=== PATIENT | female | born 1950 | race Hispanic/Latino ===

== ENCOUNTER 2016-12-15 09:38 | Emergency (ER) | payer BC ==
[2016-12-15 09:46] VITALS: PULSE 72; RESP 18; TEMP 98; BMI 18.3
--- NOTE | 2016-12-15 12:43 | ED PDOC ---
HPI: Trauma/Fall - HPI Time Seen by Provider: 12/15/16 10:11 Chief Complaint (Nursing): Groin Pain Chief Complaint (Provider): Groin Pain History Per: Patient History/Exam Limitations: no limitations Onset/Duration Of Symptoms: Days (2) Injury Occurred (Timing): Days Ago: (2) Location Of Injury: Right: Hip Severity: Moderate Additional Complaint(s): Patient is a 66 year old female who presents to ED for evaluation of right groin pain since falling. Patient states she was walking a dog, tripped and fell onto right side, since the fall has had ongoing pain. Denies head, neck or back injury. 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 Taking Motrin with partial relief. Notes only medical history is " child ." Past Medical History Reviewed: Historical Data, Nursing Documentation, Vital Signs Vital Signs: Last Vital Signs Temp 98.0 F 12/15/16 09:46 Pulse 72 12/15/16 16:45 Resp 18 12/15/16 16:45 BP 136/70 12/15/16 16:45 Pulse Ox 100 12/18/16 16:55 - Medical History PMH: No Chronic Diseases, Pneumonia - Surgical History Surgical History: No Surg Hx - Family History Family History: States: No Known Family Hx - Living Arrangements Living Arrangements: With Family - Home Medications Home Medications: Ambulatory Orders Medication Instructions Recorded oxyCODONE/Acetaminophen [Percocet 1 ea PO Q6 PRN #8 tab 12/15/16 5/325 mg Tab] traMADol [Ultram] 50 mg PO TID PRN #16 tab 12/15/16 - Allergies Allergies/Adverse Reactions: Allergies Allergy/AdvReac Type Severity Reaction Status Date / Time No Known Allergies Allergy Verified 12/15/16 10:14 Review of Systems ROS Statement: Except As Marked, All Systems Reviewed And Found Negative Constitutional: Negative for: Weakness Cardiovascular: Negative for: Chest Pain Respiratory: Negative for: Shortness of Breath Gastrointestinal: Negative for: Nausea, Vomiting Musculoskeletal: Positive for: Other (right groin/hip pain ). Negative for: Neck Pain, Back Pain Skin: Negative for: Bruising Neurological: Negative for: Weakness, Numbness, Headache Physical Exam - Reviewed Nursing Documentation Reviewed: Yes Vital Signs Reviewed: Yes - Physical Exam Appears: Positive for: Non-toxic, No Acute Distress Head Exam: Positive for: ATRAUMATIC, NORMAL INSPECTION Skin: Positive for: Normal Color, Warm Eye Exam: Positive for: Normal appearance Neck: Positive for: Normal, Painless ROM, Supple Cardiovascular/Chest: Positive for: Regular Rate, Rhythm. Negative for: Murmur Respiratory: Positive for: Normal Breath Sounds. Negative for: Respiratory Distress Gastrointestinal/Abdominal: Positive for: Normal Exam. Negative for: Tenderness Back: Positive for: Normal Inspection, Other (Right lower pelvic tenderness with full ROM of right hip, (+) Small eccy to lateral right hip). Negative for : Vertebral Tenderness Extremity: Positive for: Normal ROM. Negative for: Pedal Edema Neurologic/Psych: Positive for: Alert, Oriented. Negative for: Motor/Sensory Deficits - Laboratory Results Result Diagrams: 12/15/16 12:51 12/15/16 12:51 - ECG O2 Sat by Pulse Oximetry: 100 (RA) Pulse Ox Interpretation: Normal Medical Decision Making Medical Decision Making: Time: 1015 Initial impression: Injury r/o fracture Initial plan: -- Toradol IM -- Xray Time: 1200 Xray: (+) right superior raumus pelvic fracture Plan: -- CT with contrast to r.o other pelvic ring fracture -- BMP -- CBC labs unremarkable. CT pelvis w IV contrast confirmed isolated sup ramus fracture pelvis. 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 Rx analgesics and followup ortho 3-5 days for re-evaluation. Scribe Attestation: Documented by Sinai Nair acting as a scribe for Kostas Selby DO MD Scribe Attestation: All medical record entries made by the Scribe were at my direction and personally dictated by me. I have reviewed the chart and agree that the record accurately reflects my personal performance of the history, physical exam, medical decision making, and the department course for this patient. I have also personally directed, reviewed, and agree with the discharge instructions and disposition. Disposition - Clinical Impression Clinical Impression: Pelvic fracture, Inferior pubic ramus fracture - Patient ED Disposition Is Patient to be Admitted: No Counseled Patient/Family Regarding: Studies Performed, Diagnosis, Need For Followup, Rx Given - Disposition Referrals: Devi Cuello MD [Staff Provider] - Disposition: Routine/Home Disposition Time: 15:00 Condition: STABLE Additional Instructions: Weight bearing as tolerated. Avoid heavy lifting, heavy exertion or impact exercise for 4 weeks. Return to ER for any worse or new symptoms, blood in urine, weakness or any concern. Use pain medication as needed. Prescriptions: oxyCODONE/Acetaminophen [Percocet 5/325 mg Tab] 1 ea PO Q6 PRN #8 tab PRN Reason: Pain, Severe (8-10) traMADol [Ultram] 50 mg PO TID PRN #16 tab PRN Reason: Pain, Moderate (4-7) Instructions: Pelvic Fracture (ED) Forms: [facility] ED School/Work Excuse - POA Present On Arrival: Falls Or Trauma
[2016-12-15 12:59] LABS: BASO % 0.4 % (0.0-2.0); EOS # 0.1 K/uL (0.0-0.7); EOS % 1.3 % (0.0-4.0); HEMATOCRIT 38.5 % (34.0-47.0); LYMPH # 1.1 K/uL (1.0-4.3); MEAN CELL VOLUME 93.1 fl (81.0-99.0); MEAN CORPUSCULAR HEMOGLOBIN 30.5 pg (27.0-31.0); MEAN CORPUSCULAR HGB CONC 32.8 g/dL (33.0-37.0); MEAN PLATELET VOLUME 10.7 fl (7.2-11.7); MONO # 0.6 K/uL (0.0-0.8); MONO % 8.9 % (0.0-10.0); NEUT # 5.1 K/uL (1.8-7.0); NEUT % 73.4 % (50.0-75.0); WHITE BLOOD COUNT 6.9 K/uL (4.8-10.8)
[2016-12-15 13:13] LABS: BLOOD UREA NITROGEN 13 mg/dl (7-17); CALCIUM 9.5 mg/dL (8.4-10.2); CARBON DIOXIDE 29 mmol/L (22-30); CHLORIDE 103 mmol/L (98-107); GFR AFRICAN-AMERICAN > 60; GLUCOSE,RANDOM 88 mg/dL (65-105); POTASSIUM 4.5 MMOL/L (3.6-5.0); SODIUM 142 mmol/l (132-148)
[2016-12-15] MEDS ORDERED: Sodium Chloride 0.9% 50 ML IV ONE (14:58)
[2016-12-15] MEDS ORDERED: Iohexol 300 100 ML IJ ONE (14:58)
--- NOTE | 2016-12-15 16:03 | CT ---
PROCEDURE: CT Pelvis with contrast HISTORY: pelvic fracture COMPARISON: None. TECHNIQUE: Contiguous axial images of the pelvis with contrast. Coronal and sagittal reformats generated. Contrast dose: 95 cc Omnipaque 300 Radiation dose: Total exam DLP = 208 mGy-cm. This CT exam was performed using one or more of the following dose reduction techniques: Automated exposure control, adjustment of the mA and/or kV according to patient size, and/or use of iterative reconstruction technique. FINDINGS: BLADDER: Unremarkable. No mass. REPRODUCTIVE ORGANS: Unremarkable. VISUALIZED BOWEL: Unremarkable. PERITONEUM: Unremarkable, as visualized. No free fluid. No free air. LYMPH NODES: Unremarkable. No enlarged lymph nodes. VASCULATURE: Unremarkable. BONES: Nondisplaced right inferior pubic ramus fracture. OTHER FINDINGS: None. IMPRESSION: Nondisplaced right inferior pubic ramus fracture.
--- NOTE | 2016-12-15 16:38 | RAD ---
PROCEDURE: Pelvis HISTORY: fall R hip and groin pain COMPARISON: December 15, 2016. CT pelvis TECHNIQUE: FINDINGS: Acute pelvic ring fractures unilateral, right. No evidence of hip fracture. Mild degenerative changes. IMPRESSION: Right pelvic ring fracture, acute.
[2016-12-15 18:19] VITALS: BP 136/70
[2016-12-18 16:55] VITALS: O2SAT 100
== END 2016-12-15 16:45 | disposition home or self-care (01) ==
LOC: H.ER 09:38
DX: S32.591A Other specified fracture of right pubis, initial encounter for closed fracture (principal); S32.9XXA Fracture of unspecified parts of lumbosacral spine and pelvis, initial encounter for closed fracture; W01.0XXA Fall on same level from slipping, tripping and stumbling without subsequent striking against object, initial encounter; Y92.410 Unspecified street and highway as the place of occurrence of the external cause; R10.30 Lower abdominal pain, unspecified
CPT/HCPCS: 72193; 73502; 80048; 85025; 96372; 99282; J1885; Q9967